=== PATIENT | female | born 1965 | race Caucasian/White ===

== ENCOUNTER → 2024-11-19 | Day surgery (SDC) | payer MEDICAID ==
[~2024-11-19] VITALS: Ht 142.2 cm; Wt 57.2 kg
[~2024-11-19] MED LIST: AMLO5TAB88 PO; BUPIVACAINE HCL/PF 0.5% (5MG/ML) 10ML ONE; DEXAMETHASONE 4MG/ML 1ML VIAL ONE; FENTANYL CITRATE/PF 50MCG/ML 2ML VIAL ONE; LABETALOL 5MG/ML 4ML INJ IV PRN; LACT1CAP68 PO; MEPERIDINE HCL/PF 25MG/ML CPJ IV PRN; MIDAZOLAM HCL 2 MG/2 ML VIAL ONE; MULT-1146 PO; ONDANSETRON HCL 4MG/2ML INJ IV PRN; ONDANSETRON HCL 4MG/2ML INJ ONE; PROPOFOL 200MG/20ML VIAL IV ONE; ROCURONIUM BROMIDE 10MG/ML VIAL 5ML IV ONE; SKIN ADHESIVE 0.7 GM EA TOP ONE; SUGAMMADEX SODIUM 200MG/2ML VIAL IV ONE; TUMERIC PO
[2024-11-19] MEDS: LACTATED RINGERS 1,000 ML IV SCH (06:31)
[2024-11-19 10:03] VITALS: BP 135/66; PULSE 55; RESP 16
[2024-11-19] MEDS: HYDROMORPHONE HCL/PF 1MG/ML INJ IV PRN (10:03)
== END | disposition home or self-care (01) ==
LOC: OR 05:48
PROVIDERS: ATTEND Surgery
DX: K40.20 Bilateral inguinal hernia, without obstruction or gangrene, not specified as recurrent (principal); M19.90 Unspecified osteoarthritis, unspecified site; Z79.899 Other long term (current) drug therapy; Z98.890 Other specified postprocedural states; Z88.8 Allergy status to other drugs, medicaments and biological substances
CPT/HCPCS: 49505; J3010; J0665; J1100; J2250; J2405; J2704; J3490; J1171; J7030; C1781